=== PATIENT | female | born 1990 | race Caucasian/White ===

== ENCOUNTER 2021-10-03 07:06 | Emergency (ER) | payer OTHER ==
[~2021-10-03] VITALS: Ht 160 cm; Wt 84.4 kg
[2021-10-03 07:24] VITALS: BP 117/67
--- NOTE | 2021-10-03 07:27 | NUR ---
31 Y/O FEMALE C/O SORE THROAT. PT DENIES ANY OTHER SYMPTOMS. PT DENIES ANYONE ELSE IN HOUSEHOLD IS SICK. PT DENIES TAKING MEDICATION PRIOR TO ARRIVAL. PT DENIE CHEST PAIN, SOB. PT DENIES FEVER OR CHILLS. LUNG SOUNDS CTA. PT ALERT AND ORIENTED X4. BED LOCKED IN LOWEST POSITION. BED RAIL X1. PMH:DENIES NKA MEDS: DENIES
--- NOTE | 2021-10-03 07:45 | NUR ---
AT PT BEDSIDE
[2021-10-03 08:27] VITALS: BP 117/67
--- NOTE | 2021-10-03 08:27 | NUR ---
Patient discharged with v/s stable. Written and verbal after care instructions given and explained. Patient verbalized understanding. Ambulatory with steady gait. All questions addressed prior to discharge. Advised to follow up with PMD.
== END 2021-10-03 08:27 | disposition home or self-care (01) ==
LOC: MED 07:06
DX: J02.9 Acute pharyngitis, unspecified (principal); R07.0 Pain in throat
CPT/HCPCS: 99281